=== PATIENT | male | born 1970 ===

== ENCOUNTER 2017-05-14 06:46 | Day surgery (SDC) | payer BC ==
[~2017-05-14] VITALS: Ht 182.9 cm; Wt 90.5 kg
[~2017-05-14 06:46] MED LIST: CHOL10002; DAILY VALUE1 EACH; Ginkgo Biloba120 MG; Ibuprofen Ib200 MG PO; NAPR220
== END 2017-05-14 08:38 | disposition home or self-care (01) ==
LOC: ORSCSDS 06:46
PROVIDERS: Surgery
PROC: 0DBL8ZX Excision of Transverse Colon, Via Natural or Artificial Opening Endoscopic, Diagnostic (ICD-10-PCS; principal; 2017-05-14 08:00)
DX: Z12.11 Encounter for screening for malignant neoplasm of colon (principal); D12.3 Benign neoplasm of transverse colon; Z85.038 Personal history of other malignant neoplasm of large intestine; Z86.010 Personal history of colon polyps; E78.5 Hyperlipidemia, unspecified
CPT/HCPCS: 88305; J0330; J1980; J2405